=== PATIENT | male | born 1990 | race Caucasian/White ===

== ENCOUNTER 2017-12-28 13:43 | Emergency (ER) | payer OTHER ==
[~2017-12-28] VITALS: Ht 175.2 cm; Wt 68.0 kg
[~2017-12-28 13:43] MED LIST: MOTRIN800 MG PO; NKHM; PEPCID20 MG PO; TRAMADOL HCL50 MG PO; Zofran4 MG PO
[2017-12-28 13:46] VITALS: BP 103/84
== END 2017-12-28 14:13 | disposition home or self-care (01) ==
LOC: ED 13:43
DX: Z02.1 Encounter for pre-employment examination (principal)

== ENCOUNTER 2018-08-11 17:51 | Emergency (ER) | payer SELFPAY ==
[~2018-08-11] VITALS: Wt 68.0 kg
[2018-08-11 19:14] LABS: BASO % 0.3 % (0.0-1.0); EOS # 0.1 10*3/uL (0.0-0.4); HEMOGLOBIN 15.5 g/dl (14.0-18.0); LYMPH # 1.1 10*3/uL (1.3-4.4); LYMPH % 18.1 % (27.0-41.0); MEAN CELL VOLUME 81.4 fl (80.0-94.0); MEAN CORPUSCULAR HGB CONC 34.4 g/dl (33.0-37.0); MEAN PLATELET VOLUME 10.7 fl (9.6-12.3); MONO # 0.9 10*3/uL (0.1-1.0); MONO % 14.3 % (3.0-9.0); NEUT # 4.2 10*3/uL (2.3-7.9); PLATELET COUNT AUTOMATED 170 10*3/uL (130-400); RED BLOOD COUNT 5.53 10*6/uL (4.50-5.90); RED CELL DISTRI WIDTH 12.1 % (0-14.5); WHITE BLOOD COUNT 6.3 10*3/uL (4.8-10.8)
[2018-08-11 19:28] LABS: ALBUMIN 3.9 gm/dl (3.1-4.5); ALKALINE PHOSPHATASE 60 U/L (45-117); BUN 11 mg/dl (7-24); CHLORIDE 104 mmol/L (98-107); CREATININE 1.02 mg/dL (0.70-1.30); LIPASE 80 U/L (73-393); POTASSIUM 3.7 mmol/L (3.5-5.1); SGOT/AST 18 IU/L (3-35); SGPT/ALT 31 U/L (12-78); SODIUM 140 mmol/L (136-145); TOTAL PROTEIN 7.3 gm/dL (6.4-8.2)
[2018-08-11 20:03] VITALS: BP 127/82
[2018-08-11] MEDS ORDERED: PRILOSEC20 M1 PO (21:43)
== END 2018-08-11 21:55 | disposition home or self-care (01) ==
LOC: ED 17:51
PROVIDERS: Physician Assistant
DX: K29.00 Acute gastritis without bleeding (principal)